=== PATIENT | female | born 1950 | race Caucasian/White ===

== ENCOUNTER → 2018-11-03 | Outpatient (CLI) | payer MEDICARE, MEDICAID | LOC: LAB 16:16 | DX: N30.01 Acute cystitis with hematuria (principal); E11.9 Type 2 diabetes mellitus without complications; D64.9 Anemia, unspecified ==

== ENCOUNTER → 2018-11-03 | Outpatient (CLI) | payer MEDICARE, MEDICAID | LOC: SPU 16:56 | DX: N30.01 Acute cystitis with hematuria (principal); D64.9 Anemia, unspecified; Z13.1 Encounter for screening for diabetes mellitus | CPT/HCPCS: 36415; 51701; 81001; 82728; 83036; 83540; 83550; 87088 ==